=== PATIENT | male | born 1985 | race Caucasian/White ===

== ENCOUNTER 2025-06-10 13:04 | Outpatient (REF) | payer OTHER, SELFPAY ==
--- NOTE | 2025-06-10 13:25 | SKI_PTH ---
PATIENT: Jey Harvey LOC: [facility] U#:[id number] AGE/SX: 40/M ROOM: RE06/10/[address]: Carlos Morejon MD : 1985 BED: DIS: 06/10/2025 SPEC #: [id number] RECD: 06/10/25 18:04 STATUS: KATJA RE #: [id number] ANTIONE: 06/10/25 13:[address]: Carlos Morejon DEPT: Surgical Specimen RECD BY: Chely Holder ENTERED: 06/10/25 18:05 SP TYPE: SKI OTHR DR: Kasi Sexton Tissues: 1 - SKIN BIOPSY(SHAVE/PUNCH) Procedures: SKIN LEVEL 4 Comments: [id number]
== END 2025-06-10 13:05 | disposition home or self-care (01) ==
LOC: LBN 13:04
PROVIDERS: PCP Internal Medicine; Visit Provider Surgery
DX: D21.9 Benign neoplasm of connective and other soft tissue, unspecified (principal)
CPT/HCPCS: 88305